=== PATIENT | female | born 1990 | race Caucasian/White ===

== ENCOUNTER 2019-06-30 18:28 | Emergency (ER) | payer OTHER ==
[~2019-06-30] VITALS: Ht 167.6 cm; Wt 80.7 kg
== END 2019-07-01 01:40 | disposition home or self-care (01) ==
LOC: ED 18:28
DX: S92.241A Displaced fracture of medial cuneiform of right foot, initial encounter for closed fracture (principal); Z88.2 Allergy status to sulfonamides; X50.1XXA Overexertion from prolonged static or awkward postures, initial encounter; Y93.68 Activity, volleyball (beach) (court); Y92.89 Other specified places as the place of occurrence of the external cause; Y99.8 Other external cause status

== ENCOUNTER → 2024-02-06 | Outpatient (CLI) | payer OTHER ==
[2024-02-06 16:38] LABS: BASO % 0.1 % (0.0-1.0); EOS # 0.1 10*3/uL (0.0-0.4); EOS % 1.6 % (1.0-4.0); HEMATOCRIT 35.9 % (37.0-47.0); LYMPH # 1.7 10*3/uL (1.3-4.4); LYMPH % 22.8 % (27.0-41.0); MEAN CELL VOLUME 93.2 fl (81.0-99.0); MEAN CORPUSCULAR HGB 31.4 pg (27.0-31.0); MEAN CORPUSCULAR HGB CONC 33.7 g/dl (33.0-37.0); MEAN PLATELET VOLUME 10.2 fl (9.6-12.3); MONO # 0.4 10*3/uL (0.1-1.0); MONO % 4.8 % (3.0-9.0); NEUT # 5.1 10*3/uL (2.3-7.9); NEUT % 70.4 % (47.0-73.0); PLATELET COUNT AUTOMATED 216 10*3/uL (130-400); RED BLOOD COUNT 3.85 10*6/uL (4.10-5.10); RED CELL DISTRI WIDTH 12.4 % (0-14.5); WHITE BLOOD COUNT 7.3 10*3/uL (4.8-10.8)
[2024-02-06 16:45] LABS: URINE CREATININE RANDOM 126.27 mg/dL
[2024-02-06 17:12] LABS: ALKALINE PHOSPHATASE 41 U/L (46-116); BUN 8 mg/dl (9-23); CHLORIDE 106 mmol/L (98-107); POTASSIUM 3.8 mmol/L (3.4-5.1); SGPT/ALT 7 U/L (5-49); TOTAL PROTEIN 6.7 gm/dL (6.0-8.0); URIC ACID 2.8 mg/dL (3.1-7.8)
[2024-02-07 06:08] LABS: HEPATITIS B SURFACE AG Negative (Negative)
[2024-02-07 18:06] LABS: HEPATITIS C QNT HCV Not Detected IU/mL (.)
== END | disposition home or self-care (01) ==
LOC: LAB 16:05
PROVIDERS: ATTEND Nurse Practitioner
DX: O09.291 Supervision of pregnancy with other poor reproductive or obstetric history, first trimester (principal); Z3A.13 13 weeks gestation of pregnancy

== ENCOUNTER → 2024-10-28 | Outpatient (CLI) | payer OTHER | END | disposition home or self-care (01) | LOC: RAD 07:36 | PROVIDERS: ATTEND Chiropractor | DX: M54.50 Low back pain, unspecified (principal) ==

== ENCOUNTER → 2025-02-16 | Outpatient (CLI) | payer OTHER ==
[2025-02-16 08:57] LABS: BUN 10 mg/dl (9-23); SGPT/ALT 32 U/L (5-49)
== END | disposition home or self-care (01) ==
LOC: LAB 07:31
PROVIDERS: ATTEND Family Medicine
DX: R74.8 Abnormal levels of other serum enzymes (principal); Z86.32 Personal history of gestational diabetes

== ENCOUNTER → 2025-03-12 | Outpatient (CLI) | payer OTHER | END | disposition home or self-care (01) | LOC: LAB 02:29 | PROVIDERS: ATTEND Obstetrics & Gynecology | DX: Z86.32 Personal history of gestational diabetes (principal) ==

== ENCOUNTER → 2025-03-24 | Outpatient (CLI) | payer OTHER | END | disposition home or self-care (01) | LOC: ORTHO 13:48 | PROVIDERS: ATTEND Orthopaedic Surgery | DX: M25.521 Pain in right elbow (principal) ==

== ENCOUNTER → 2025-05-10 | Outpatient (CLI) | payer OTHER | END | disposition home or self-care (01) | LOC: LAB 07:51 | PROVIDERS: ATTEND Psychiatry & Neurology Neurology | DX: Z83.2 Family history of diseases of the blood and blood-forming organs and certain disorders involving the immune mechanism (principal) ==

== ENCOUNTER → 2025-05-20 | Outpatient (CLI) | payer OTHER ==
[~2025-05-20] MED LIST: GADOTERATE MEGLUMINE 7.5 MMOL/15 ML VIAL IV ONE
== END | disposition home or self-care (01) ==
LOC: MRI 01:53
PROVIDERS: ATTEND Psychiatry & Neurology Neurology
DX: R51.9 Headache, unspecified (principal); H53.8 Other visual disturbances

== ENCOUNTER → 2025-07-19 | Day surgery (SDC) | payer OTHER ==
[2025-07-18 08:07] LABS: BUN 11 mg/dl (9-23)
[~2025-07-19] VITALS: Wt 80.5 kg
[~2025-07-19] MED LIST changes: +ACETAMINOPHEN 100 ML IV ONE; +Dexamethasone Sodium Phospha 4 MG/ML VIAL IV ONE; +FLUOXETINE40 MG PO; -GADOTERATE MEGLUMINE 7.5 MMOL/15 ML VIAL IV ONE; +HYDROCODONE-AC1 EAC1 PO; +HYDROmorphONE Hydrochloride 0.5 MG/0.5 ML SYRINGE IV PRN; +Ketamine Hydrochloride 50 MG/5 ML SYRINGE IV ONE; +Lactated Ringer's Solution 1,000 ML IV ONE; +Lidocaine Hydrochloride 30 ML VIAL ONE; +Lidocaine Hydrochloride 5 ML VIAL IV ONE; +MAGNESIUM500 MG PO; +Midazolam Hydrochloride 2 MG/2 ML VIAL IV ONE; +PRENATABS RX T1 EACH PO; +PROPOFOL 200 MG/20 ML VIAL IV ONE; +PROPRANOLOL HCL10 MG PO; +ROCURONIUM BROMIDE 50 MG/5 ML SYRINGE IV ONE; +SEVOFLURANE 250 ML BOT INH ONE; +ZOMIG PO; +ceFAZolin sodium/sodium chlor 10 ML IV ONE
[2025-07-19 07:08] VITALS: BP 162/63
[2025-07-19 08:42] VITALS: BP 134/64
[2025-07-19 09:00] VITALS: BP 134/64
[2025-07-19 09:12] VITALS: BP 124/70
[2025-07-19 09:27] VITALS: BP 118/71
[2025-07-19 09:42] VITALS: BP 112/71
== END | disposition home or self-care (01) ==
LOC: SDC 07-08 08:45
PROVIDERS: ATTEND Orthopaedic Surgery
DX: G56.21 Lesion of ulnar nerve, right upper limb (principal); G43.909 Migraine, unspecified, not intractable, without status migrainosus; F32.A Depression, unspecified; Z98.891 History of uterine scar from previous surgery; Z98.890 Other specified postprocedural states; Z79.899 Other long term (current) drug therapy; Z88.2 Allergy status to sulfonamides